=== PATIENT | female | born 1965 | race African-American/Black ===

== ENCOUNTER → 2016-12-10 | Outpatient (CLI) | payer OTHER ==
--- NOTE | ~2016-12-10 | MY11 ---
[facility] A Service of [facility] & [facility] RADIOLOGY TEXT RESULTS PATIENT: ALEXA CONRAD LOCATION: [facility] : 67 UNIT #: [id number] AGE: [address]: Jonh Granda APRN SEX: F ORDER DR: [id number] [facility] [address] [place], [place] [address] [id number] O MR#: [id number] Acc #: [id number] NAME: ALEXA CONRAD : 1965 SEX: F STUDY DATE/TIME: 12/10/2016 12:23 UNIT: [facility] ROOM: STUDY DESCRIPTION: MY Mammogram Screening Dig Sen Attending Physician: Jonh Granda A.P.R.N. Referring Physician: Jonh Granda A.P.R.N. Ordering Physician: Jonh Granda A.P.R.N. Primary Care Physician: Connor Frances M.D. MEDICAL IMAGING REPORT This report is preliminary unless electronic signature is present EXAM Digital screening mammogram 12/10/2016. HISTORY 51-year-old woman. Positive family history, grandmother. Annual screen. COMPARISON 09/24/2005 02/20/2010. FINDINGS Digital imaging of each breast was completed utilizing screening protocol. Review includes FDA-approved CAD device. Breast parenchyma is fatty replaced and stable. There is no interval occurring mass. There are no suspicious microcalcifications and no architectural deformity. IMPRESSION Negative mammogram. Annual screening recommended. Patients over the age of 40 are entered into a reminder system with target due date for the next mammogram. A result letter will also be sent to the patient. BIRADS: 1 Negative. Dictated by... Darci Jones M.D. THIS IS AN ELECTRONICALLY VERIFIED REPORT Darci Jones M.D. at 12/10/2016 3:38 PM Katie TD: 12/10/2016 13:56 JOB #: [id number] [facility] A Service of [facility] RADIOLOGY TEXT RESULTS PATIENT: ALEXA CONRAD LOCATION: [facility] : 67 UNIT #: [id number] AGE: [address]: Jonh Granda APRN SEX: F ORDER DR: MEDICAL IMAGING REPORT Page 1 of 1 COPY
== END | disposition home or self-care (01) ==
LOC: CWCC 11:42
DX: Z12.31 Encounter for screening mammogram for malignant neoplasm of breast (principal); Z80.3 Family history of malignant neoplasm of breast
CPT/HCPCS: G0202